=== PATIENT | female | born 1945 | race Caucasian/White ===

== ENCOUNTER → 2018-10-02 | Outpatient (CLI) | payer MEDICARE, OTHER ==
[~2018-10-02] MED LIST: ALE70 PO; AMLO-125 PO; CALC-852 PO; CALC1CAP19 PO; ECHI80CA2 PO; GLUC-198 PO; HYDR12.556 PO; HYDR12.561 PO; LEVO88TA42 PO; LEVO88TA45 PO; METO-253 PO; METO25TA93 PO; MULT1TAB64 PO; PNEU0.5D3 IM
--- NOTE | 2018-10-03 08:36 | RADIOLOGY IMAGING REPORT ---
FACILITY: [facility] - [place], [place] PATIENT NAME: ANGELINA MEJIA : [id number] MR: [id number] V: [id number] EXAM DATE: ORDERING PHYSICIAN: TERESO TOBAR TECHNOLOGIST: Iman Vazquez PROCEDURE:BILATERAL DIGITAL SCREENING MAMMOGRAM WITH CAD ASSISTED INTERPRETATION & 3D TOMOSYNTHESIS COMPARISON:Prior mammograms 08/15/17, 07/19/16, 07/17/15, 07/31/13, 04/10/12. INDICATIONS:screening FINDINGS: Scattered fibroglandular densities are seen throughout the breasts. The parenchymal pattern has remained stable allowing for difference in mammographic technique & patient positioning. DIAGNOSTIC CATEGORY 1--NEGATIVE. RECOMMENDATIONS: ROUTINE MAMMOGRAM AND CLINICAL EVALUATION. IMPRESSION: BIRADS 1: Negative. No significant abnormality is seen. Dictated by: Pina Gallagher M.D. on 10/02/2018 at 16:39 Transcribed by: SUZAN on 10/03/2018 at 7:52 Approved by: Pina Gallagher M.D. on 10/03/2018 at 8:35 [facility]
== END ==
LOC: MAMO 01:25
PROVIDERS: ATTEND Internal Medicine
DX: Z12.31 Encounter for screening mammogram for malignant neoplasm of breast (principal)
CPT/HCPCS: 77063; 77067

== ENCOUNTER → 2019-02-06 | Outpatient (CLI) | payer MEDICARE, OTHER ==
[~2019-02-06] MED LIST changes: +ROSU10TA5 PO
--- NOTE | 2019-02-06 13:07 | RADIOLOGY IMAGING REPORT ---
FACILITY: [facility] PATIENT NAME: Binta Cantu : 1945 MR: [id number] V: [id number] EXAM DATE: ORDERING PHYSICIAN: PIPE JIMENEZ TECHNOLOGIST: Location: [facility] Patient: Binta Cantu : 1945 Visit/Account:[id number] Date of Sevice: 02/06/2019 DEXA Scan Clinical history: Screening. Comparison: 07/17/2015. LUMBAR SPINE: The bone mineral density (BMD) measured from L1-L4 correlates with a Z-score of 1.4 and a T-score of -0.2 which is within normal range as defined by the World Health Organization. The corresponding risk of fracture in the lumbar spine is not increased compared with a young adult reference population. This value has increased by 15.5 % since the prior study. More than 5% change is considered significant. HIP: Bone mineral density (BMD) measured in the Left Total Hip region correlates with a Z-score of -0.5 an d a T-score of -2.0. The T-score of the femoral neck is -2.5. The lower of the two T-scores is osteopenic bordering on osteoporotic as defined by the World Health Organization. The corresponding risk of fracture in the hip is increased at least fourf old compared with a young adult reference population. This value has increased by 2 % since the prio r study. More than 5% change is considered significant. Bone mineral density (BMD) measured in the Left Femoral Neck region measures 0.696 g/cm?. IMPRESSION: 1. Lumbar spine: Within normal range. There has been significant increase in the bone mineral dens ity since the previous exam. 2. Left Total Hip: Osteopenia bordering on osteoporosis. There has been no significant change in th e bone mineral density since the previous exam. The next DEXA scan of this patient should include the following sites: L1-L4 and Left hip. FRAX? WHO Fracture Risk Assessment Tool link: <http://www.shef.ac.uk/FRAX/tool.jsp?locationValue=9> PLEASE NOTE: 1) The World Health Organization defines low BMD as follows: T-score Normal > -1 Osteopenia < -1 and > -2.5 Osteoporosis < -2.5 without fractures Established osteoporosis < -2.5 with fractures 2) In general, you may wish to consider: Diagnosis Treatment Follow-up DEXA Normal BMD Prevention 2-3 years Osteopenia Prevention/therapy 1-2 years Osteoporosis Therapy Yearly 3) Fracture risk estimated from the T-score is more accurate for vertebral fractures (often spontane ous) than for hip fractures. Report Dictated By: Bipin Lucio MD at 02/06/2019 1:01 PM Report E-Signed By: Bipin Lucio MD at 02/06/2019 1:04 PM WSN:[id number]
== END ==
LOC: RAD 10:57
PROVIDERS: ATTEND Emergency Medicine
DX: M85.852 Other specified disorders of bone density and structure, left thigh (principal)
CPT/HCPCS: 77080

== ENCOUNTER → 2019-03-06 | Outpatient (CLI) | payer MEDICARE, OTHER ==
[~2019-03-06] MED LIST changes: +ROSU10TA PO
== END ==
LOC: LAB 10:15
PROVIDERS: ATTEND Emergency Medicine
DX: E78.5 Hyperlipidemia, unspecified (principal); I10 Essential (primary) hypertension; M85.80 Other specified disorders of bone density and structure, unspecified site
CPT/HCPCS: 36415; 82306; 82465; 82607; 83718; 84478